=== PATIENT | male | born 1980 | race Two or more races ===

== ENCOUNTER 2024-06-25 18:10 | Inpatient (IN) | payer MEDICAID ==
[~2024-06-25] VITALS: Ht 170.2 cm; Wt 134.4 kg
[2024-06-25 18:39] VITALS: PULSE 121; RESP 24; O2SAT 95
[2024-06-25] MEDS: MAGNESIUM SULFATE 1GM/100ML 100 ML IV SCH (18:45)
[2024-06-25] MEDS: predniSONE 20 MG TAB PO ONE (18:45)
--- NOTE | 2024-06-25 18:56 | ECG ---
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
[2024-06-25] MEDS: IPRATROPIUM BROM 0.5 MG/2.5ML INH SOL HHN ONE (19:16)
[2024-06-25] MEDS: ALBUTEROL SULF 2.5 MG/0.5ML(0.5%) NEB SOLN HHN ONE (19:16)
[2024-06-25 19:20] VITALS: PULSE 120; RESP 22; O2SAT 95
--- NOTE | 2024-06-25 19:22 | ED.PDOC ---
SOB-HPI HPI Comments 44-year-old male came to ER via EMS for shortness of breath. Patient denies any medical problems. States for the past 3 days he has been having flu-like symptoms, including weakness, myalgia, cough, shortness of breath, chest discomfort, wheezing. Patient was saturating 89% on room air, in 93% at 4lpm. Patient was given albuterol Atrovent nebulization while EN route to the ER Chief Complaint: Shortness of Breath Time Seen by MD: 19:22 Primary Care Provider: TAZK Reviewed notes: Nurses Notes Information Source: Patient, Emergency Med Personnel Mode of Arrival: EMS Severity: Moderate Timing: Days Duration: Since onset Context: At Rest, With Light Exertion PE Risk Factors: None History of: None Prehospital treatment: Breathing Tx, Oxygen Modifying Factors: Nothing Associated Signs and Symptoms: Wheeze, Cough, Chest Pain Quality: Aching, Tightness Radiation: No Radiation Location: Chest (R), Chest (L) If cough with SOB: Productive Past Medical History PAST MEDICAL HISTORY: Denies Surgical History: Denies all surgeries Social History Smoker: Cigarettes Drugs: Marijuana Lives In: Home Constitutional: denies: chills, diaphoresis, fatigue, fever, malaise, sweats, weakness, others EENTM: denies: blurred vision, double vision, ear bleeding, ear discharge, ear drainage, ear pain, ear ringing, eye pain, eye redness, hearing loss, mouth pain, mouth swelling, nasal discharge, nose bleeding, nose congestion, nose pain, photophobia, tearing, throat pain, throat swelling, voice changes, others Respiratory: reports: cough, SOB at rest, shortness of breath, SOB with excertion, wheezing; denies: hemoptysis, orthopnea, stridor, others Cardiovascular: reports: chest pain; denies: dizzy spells, diaphoresis, Dyspnea on exertion, edema, irregular heart beat, left arm pain, lightheadedness, palpitations, PND, syncope, others Gastrointestinal: denies: abdomen distended, abdominal pain, blood streaked bowels, constipated, diarrhea, dysphagia, difficulty swallowing, hematemesis, melena, nausea, poor appetite, poor fluid intake, rectal bleeding, rectal pain, vomiting, others Genitourinary: denies: burning, dysuria, flank pain, frequency, hematuria, incontinence, penile discharge, penile sore, pain, testicle pain, testicle swelling, urgency, others Neurological: denies: dizziness, fainting, headache, left sided numbness, left sided weakness, numbness, paresthesia, pre-existing deficit, right sided numbness, right sided weakness, seizure, speech problems, tingling, tremors, weakness, others Musculoskeletal: denies: back pain, gout, joint pain, joint swelling, muscle pain, muscle stiffness, neck pain, others Integumetry: denies: bruises, change in color, change in hair/nails, dryness, laceration, lesions, lumps, rash, wounds, others Allergic/Immunocompromised: denies: Difficulty Healing, Frequent Infections, Hives, Itching, others Hematologic/Lymphatic: denies: anemia, blood clots, easy bleeding, easy bruising, swollen glands, others Endocrine: denies: excessive hunger, excessive sweating, excessive thirst, excessive urination, flushing, intolerance to cold, intolerance to heat, un explained weight gain, unexplained weight loss, others Psychiatric: denies: anxiety, bipolar disorder, depression, hopeless, panic disorder, schizophrenia, sleepless, suicidal, others Physical Exam General Appearance: Moderate Distress, Normal HEENT: Normal ENT Inspection, Pharynx Normal, TMs Normal Neck: Full Range of Motion, Non-Tender, Normal, Normal Inspection Respiratory: Chest Non-Tender, Crackles, Decreased Breath Sounds, No Accessory Muscle Use, Respiratory Distress, Wheezing Cardiovascular: No Edema, No JVD, No Murmur, No Gallop, Normal Peripheral Pulses, Regular Rate/Rhythm Breast Exam: Deferred Gastrointestinal: No Organomegaly, Non Tender, No Pulsatile Mass, Normal Bowel Sounds, Soft Genitalia: Deferred Pelvic: Deferred Rectal: Deferred Extremities: No calf tenderness, Normal capillary refill, Normal inspection, Normal range of motion, Non-tender, No pedal edema Musculoskeletal : Apperance: Normal Neurologic: Alert, handtools repairer II-XII nml as Tested, No Motor Deficits, Normal Affect, Normal Mood, No Sensory Deficits Cerebellar Function: Normal Reflexes: Normal Skin: Dry, Normal Color, Warm Lymphatic: No Adenopathy EKG EKG : Pulse Rate (adult): 134 Cardiac Rhythm: ST Was a procedure done? Was a procedure done?: No Differential Dx Differential Diagnosis: Asthma, Bronchitis, CHF, COPD, Myocardial infarction, Panic Attack, Pneumonia, Respiratory Distress, URI, Other (Influenza, COVID) X-Ray, Labs, Meds, VS Vital Signs Date Time Temp Pulse Resp B/P (MAP) Pulse Ox O2 Delivery O2 Flow Rate FiO2 06/25/24 22:00 99.1 106 22 128/59 (82) 94 99.1 06/25/24 20:18 110 20 96/51 06/25/24 20:00 117 06/25/24 19:48 120 22 125/65 06/25/24 19:23 134 06/25/24 19:20 99.3 120 22 125/65 (85) 95 99.3 06/25/24 19:20 120 22 95 Nasal Cannula* 3 32 06/25/24 19:16 20 97 Nasal Cannula* 3 32 06/25/24 19:16 97 Nasal Cannula* 3 32 06/25/24 18:53 99.8 126 30 128/72 (90) 93 06/25/24 18:39 121 24 95 Nasal Cannula* 4 36 06/25/24 18:38 98.1 121 24 157/82 (107) 95 98.1 06/25/24 18:17 134 Lab Test 06/25/24 22:06 06/25/24 20:55 06/25/24 20:12 06/25/24 19:24 Range/Units Lactic Acid Level 1.6 0.4-2.0 mmol/L Influenza Type A Antigen Positive Negative Influenza Type B Antigen Negative Negative Troponin I High Sensitivity 8 8 </=54 ng/L White Blood Count 16.2 H 4.4-10.8 10^3/uL Red Blood Count 4.64 4.5-5.90 10^6/uL Hemoglobin 14.8 13.5-17.5 g/dL Hematocrit 44.1 41.0-53.0 % Mean Corpuscular Volume 95.2 80.0-100.0 fL Mean Corpuscular Hemoglobin 32.0 28.0-32.0 pg Mean Corpuscular Hemoglobin Concent 33.6 32.0-36.0 g/dL Red Cell Distribution Width 13.1 11.8-14.3 % Platelet Count 202 140-450 10^3/uL Mean Platelet Volume 8.0 6.9-10.8 fL Neutrophils (%) (Auto) 89.1 H 37.0-80.0 % Lymphocytes (%) (Auto) 3.4 L 10.0-50.0 % Monocytes (%) (Auto) 7.4 0.0-12.0 % Eosinophils (%) (Auto) 0.0 0.0-7.0 % Basophils (%) (Auto) 0.1 0.0-2.0 % Neutrophils # (Auto) 14.5 H 1.6-8.6 10 ^3/uL Lymphocytes # (Auto) 0.6 0.4-5.4 10 ^3/uL Monocytes # (Auto) 1.2 0-1.3 10 ^3/uL Eosinophils # (Auto) 0 0-0.8 10 ^3/uL Basophils # (Auto) 0 0-0.2 10 ^3/uL Nucleated Red Blood Cells 0.0 % Sodium Level 129 L 136-145 mmol/L Potassium Level 3.3 L 3.5-5.1 mmol/L Chloride Level 99 98-107 mmol/L Carbon Dioxide Level 19 L 20-31 mmol/L Anion Gap 11 5-15 Blood Urea Nitrogen 16 9-23 mg/dL Creatinine 1.12 0.700-1.30 mg/dL Glomerular Filtration Rate Calc 83 >90 mL/min BUN/Creatinine Ratio 14.3 10.0-20.0 Serum Glucose 142 H 74-106 mg/dL Calcium Level 9.3 8.7-10.4 mg/dL Magnesium Level 1.7 1.6-2.6 mg/dL Total Bilirubin 0.8 0.2-1.0 mg/dL Aspartate Amino Transferase (AST) 36 13-40 U/L Alanine Aminotransferase (ALT) 36 7-40 U/L Alkaline Phosphatase 84 46-116 U/L B-Type Natriuretic Peptide 67.21 0-100 pg/mL Total Protein 7.0 5.7-8.2 g/dL Albumin 4.2 3.2-4.8 g/dL Current Medications Medications (Trade) Dose Ordered Sig/Vinny Route Start Time Stop Time Status Last Admin Albuterol (Ventolin Medneb) 5 mg ONCE ONCE [facility] 06/25/24 18:30 06/25/24 18:31 DC 06/25/24 19:16 Ipratropium [place] (Atrovent Medneb) 0.5 mg ONCE ONCE [facility] 06/25/24 18:30 06/25/24 18:31 DC 06/25/24 19:16 Prednisone 40 mg ONCE ONCE PO 06/25/24 18:30 06/25/24 18:31 DC 06/25/24 18:45 Magnesium Sulfate/ Dextrose 100 ml @ 100 mls/hr Q1H IV 06/25/24 18:30 06/25/24 20:29 DC 06/25/24 19:33 Ondansetron HCl (Zofran) 4 mg ONCE ONCE IV 06/25/24 19:45 06/25/24 19:46 DC 06/25/24 19:49 Morphine Sulfate 4 mg ONCE ONCE IV 06/25/24 19:45 06/25/24 19:46 DC 06/25/24 19:48 Ceftriaxone Sodium 50 ml @ 100 mls/hr ONCE ONCE IV 06/25/24 21:45 06/25/24 22:14 DC 06/25/24 22:01 Azithromycin 250 ml @ 125 mls/hr ONCE ONCE IV 06/25/24 21:45 06/25/24 23:44 DC 06/25/24 22:23 Time of 1ST Reevaluation: 19:19 Reevaluation 1ST: Unchanged Patient Education/Counseling: Diagnosis, Treatment Family Education/Counseling: No Family Present Departure 1 Departure Time of Disposition: 21:30 Impression: Primary Impression: Respiratory failure with hypoxia Additional Impressions: Bronchospasm, acute URI, acute Disposition: 09 ADMITTED INPATIENT Admit to: Med Surg Condition: Guarded e-Prescriptions Oseltamivir Phosphate (Tamiflu) 75 Mg Cap 1 CAP PO BID for 5 Days, #10 CAP Prov: COLT GARCIA MD 06/25/24 Azithromycin (Azithromycin) 500 Mg Tab 1 TAB PO DAILY for 7 Days, #7 TAB Prov: COLT GARCIA MD 06/25/24 Prednisone (Prednisone) 20 Mg Tab 20 MG PO BID for 5 Days, #10 TAB Prov: COLT GARCIA MD 06/25/24 Albuterol Sulfate (Albuterol Sulfate Hfa) 108 Mcg/Act Aer 108 MCG IN Q6HP PRN for 10 Days, #1 AER Prov: COLT GARCIA MD 06/25/24 Critical Care Note Critical Care Time?: Yes (35 min-critical care time only) Critical care comment: Shortness of breath, hypoxia Stability Stability form required: No Heart Score Heart Score: Heart Score Response (Comments) Value History Slightly Suspicious 0 EKG Normal 0 Age <45 0 Risk Factors No known risk factors 0 Troponin Normal limit 0 Total 0 I personally scribed for COLT GARCIA MD ([email or web address]) on 06/25/24 at 19:22. Electronically submitted by Saleem Cm ([facility] I personally scribed for COLT GARCIA MD ([email or web address]) on 06/25/24 at 19:23. Electronically submitted by Saleem Cm ([email or web address]). I personally scribed for COLT GARCIA MD ([email or web address]) on 06/25/24 at 20:20. Electronically submitted by Samara Cabrera ([email or web address]). COLT GARCIA MD Jun 25, 2024 19:22
--- NOTE | 2024-06-25 19:23 | DVH ---
CHEST RADIOGRAPH Indication: SOB Technique: Single frontal view of the chest was obtained Comparison: None FINDINGS: Lines and Tubes: None Lungs: Clear Pleura: No effusion. No pneumothorax. Cardiomediastinal contours: Unremarkable Bones: Unremarkable IMPRESSION: Clear lungs.
[2024-06-25 19:48] LABS: Basophils # (auto) 0 10 ^3/uL (0-0.2); Basophils % (auto) 0.1 % (0.0-2.0); Eosinophils # (auto) 0 10 ^3/uL (0-0.8); Hematocrit 44.1 % (41.0-53.0); Hemoglobin 14.8 g/dL (13.5-17.5); Lymphocytes # (auto) 0.6 10 ^3/uL (0.4-5.4); Lymphocytes % (auto) 3.4 % (10.0-50.0); Mean Corpuscular Hgb Conc. 33.6 g/dL (32.0-36.0); Mean Corpuscular Volume 95.2 fL (80.0-100.0); Monocytes # (auto) 1.2 10 ^3/uL (0-1.3); Monocytes % (auto) 7.4 % (0.0-12.0); Neutrophils # (auto) 14.5 10 ^3/uL (1.6-8.6); Neutrophils % (auto) 89.1 % (37.0-80.0); Platelet Count (auto) 202 10^3/uL (140-450); Red Blood Cells 4.64 10^6/uL (4.5-5.90); Red Cell Distribution Width 13.1 % (11.8-14.3); White Blood Cell 16.2 10^3/uL (4.4-10.8)
[2024-06-25] MEDS: MORPHINE SULFATE 4 MG/ML SYR/VIAL IV ONE (19:48)
[2024-06-25] MEDS: ONDANSETRON HCL 4 MG/2 ML VIAL IV ONE (19:49)
[2024-06-25 20:19] LABS: Alanine Aminotransferase 36 U/L (7-40); Albumin 4.2 g/dL (3.2-4.8); Alkaline Phosphatase 84 U/L (46-116); Anion Gap 11 (5-15); Aspartate Aminotransferase 36 U/L (13-40); BUN/Creatinine Ratio 14.3 (10.0-20.0); Blood Urea Nitrogen 16 mg/dL (9-23); Calcium 9.3 mg/dL (8.7-10.4); Chloride 99 mmol/L (98-107); Magnesium 1.7 mg/dL (1.6-2.6)
[2024-06-25 20:20] LABS: Bilirubin, Total 0.8 mg/dL (0.2-1.0)
[2024-06-25 20:21] LABS: Carbon Dioxide 19 mmol/L (20-31); Glucose 142 mg/dL (74-106); Potassium 3.3 mmol/L (3.5-5.1); Sodium 129 mmol/L (136-145)
[2024-06-25] MEDS ORDERED: ALBU108A5 IN (21:15)
[2024-06-25] MEDS ORDERED: AZIT500T66 PO (21:15)
[2024-06-25] MEDS ORDERED: OSEL75CA5 PO (21:15)
[2024-06-25] MEDS ORDERED: PRED20TA2 PO (21:15)
[2024-06-25] MEDS: cefTRIAXone 1GM/50ML D5W 50 ML IV ONE (22:01)
[2024-06-25 22:13] LABS: Rapid Influenza A Positive (Negative); Rapid Influenza B Negative (Negative)
[2024-06-25] MEDS: AZITHROMYCIN 500MG/ 250ML 250 ML IV ONE (22:23)
--- NOTE | 2024-06-25 23:08 | DVHHPRES ---
History of Present Illness Resident Creating Document: NAVIN RAMAN RESIDENT History of Present Illness The patient is a 44-year-old male with no known medical history who presented to the hospital with worsening shortness of breath, cough, fever, and chills that began two days ago. He suspects he contracted an infection from family members who had similar but less severe symptoms. His shortness of breath has progressively worsened and is accompanied by cough and sputum production. He denies any other symptoms such as chest pain, headache, motor weakness, sensory deficits, or abdominal pain. Upon further evaluation, he was found to be tachycardic, with an elevated white blood cell count and hypoxia. He was initiated on IV antibiotics, IV fluids, and breathing treatments. He denies any other symptoms. Patient will be admitted to hospital for pneumonia and acute hypoxic respiratory failure . Past Medical History None Past Surgical History: None Family History: None Smoke: No ALCOHOL: none Lives: with Family Review of Systems Constitutional: No: Fever, Chills, Sweats, Weakness, Malaise, Other Eyes: No: Pain, Vision change, Conjunctivae inflammation, Eyelid inflammation, Other, Redness ENT: No: Ear pain, Ear discharge, Nose pain, Nose discharge, Nose congestion, Mouth pain, Mouth swelling, Throat pain, Throat swelling, Other Respiratory: Cough, Shortness of breath, SOB with excertion, Sputum Cardiovascular: No: Chest Pain, Palpitations, Orthopnea, Paroxysmal Noc. Dyspnea, Edema, Lt Headedness, Other Gastrointestinal: No: Nausea, Vomiting, Abdominal Pain, Diarrhea, Constipation, Melena, Hematochezia, Other Genitourinary: No Dysuria, No Frequency, No Incontinence, No Hematuria, No Retention, No Other Musculoskeletal: No: other, neck pain, shoulder pain, arm pain, back pain, hand pain, leg pain, foot pain Skin: No: Rash, Lesions, Jaundice, Bruising, Other Neurological: No: Weakness, Numbness, Incoordination, Change in speech, Confusion, Seizures, Other Allergies: Coded Allergies: NO KNOWN ALLERGIES (Unverified , 11/24/11) Medications Current Medications Medications Dose Ordered Sig/Vinny Route Start Time Stop Time Status Last Admin Dose Admin Nitroglycerin 0.4 mg Q5MINP PRN SL 06/25/24 23:15 Morphine Sulfate 2 mg Q30M PRN IV 06/25/24 23:15 Sodium Chloride 1,000 ml @ 125 mls/hr Q8H IV 06/25/24 23:15 UNV Ceftriaxone Sodium 50 ml @ 100 mls/hr DAILY@09 IV 06/26/24 09:00 UNV Azithromycin 500 mg DAILY PO 06/26/24 10:00 UNV Albuterol 2.5 mg Q6HR NEB 06/26/24 00:00 UNV Ipratropium [place] 0.5 mg Q6HR NEB 06/26/24 00:00 UNV Exam Vital Signs Vital Signs Date Time Temp Pulse Resp B/P (MAP) Pulse Ox O2 Delivery O2 Flow Rate FiO2 06/25/24 22:00 99.1 106 22 128/59 (82) 94 99.1 06/25/24 19:20 Nasal Cannula* 3 32 General Appearance: Alert, Oriented X3 HEENT: PERRLA Respiratory: Clear to auscultation, Other (Mild crackles over bilateral lung base.) Cardiovascular: Regular rate, Normal S1, Normal S2 Abdominal: Normal bowel sounds, Soft, No tenderness Extremities: No clubbing, No cyanosis, No edema Skin: No rashes, No breakdown, No significant lesion Neuro: Normal gait, Normal speech, Strength at 5/5 X4 ext Psych/Mental Status: Mental status NL, Mood NL Labs/Xrays Labs Test 06/25/24 22:06 06/25/24 20:55 06/25/24 20:12 06/25/24 19:24 Range/Units Lactic Acid Level 1.6 0.4-2.0 mmol/L Influenza Type A Antigen Positive Negative Influenza Type B Antigen Negative Negative Troponin I High Sensitivity 8 </=54 ng/L White Blood Count 16.2 H 4.4-10.8 10^3/uL Red Blood Count 4.64 4.5-5.90 10^6/uL Hemoglobin 14.8 13.5-17.5 g/dL Hematocrit 44.1 41.0-53.0 % Mean Corpuscular Volume 95.2 80.0-100.0 fL Mean Corpuscular Hemoglobin 32.0 28.0-32.0 pg Mean Corpuscular Hemoglobin Concent 33.6 32.0-36.0 g/dL Red Cell Distribution Width 13.1 11.8-14.3 % Platelet Count 202 140-450 10^3/uL Mean Platelet Volume 8.0 6.9-10.8 fL Neutrophils (%) (Auto) 89.1 H 37.0-80.0 % Lymphocytes (%) (Auto) 3.4 L 10.0-50.0 % Monocytes (%) (Auto) 7.4 0.0-12.0 % Eosinophils (%) (Auto) 0.0 0.0-7.0 % Basophils (%) (Auto) 0.1 0.0-2.0 % Neutrophils # (Auto) 14.5 H 1.6-8.6 10 ^3/uL Lymphocytes # (Auto) 0.6 0.4-5.4 10 ^3/uL Monocytes # (Auto) 1.2 0-1.3 10 ^3/uL Eosinophils # (Auto) 0 0-0.8 10 ^3/uL Basophils # (Auto) 0 0-0.2 10 ^3/uL Nucleated Red Blood Cells 0.0 % Sodium Level 129 L 136-145 mmol/L Potassium Level 3.3 L 3.5-5.1 mmol/L Chloride Level 99 98-107 mmol/L Carbon Dioxide Level 19 L 20-31 mmol/L Anion Gap 11 5-15 Blood Urea Nitrogen 16 9-23 mg/dL Creatinine 1.12 0.700-1.30 mg/dL Glomerular Filtration Rate Calc 83 >90 mL/min BUN/Creatinine Ratio 14.3 10.0-20.0 Serum Glucose 142 H 74-106 mg/dL Calcium Level 9.3 8.7-10.4 mg/dL Magnesium Level 1.7 1.6-2.6 mg/dL Total Bilirubin 0.8 0.2-1.0 mg/dL Aspartate Amino Transferase (AST) 36 13-40 U/L Alanine Aminotransferase (ALT) 36 7-40 U/L Alkaline Phosphatase 84 46-116 U/L B-Type Natriuretic Peptide 67.21 0-100 pg/mL Total Protein 7.0 5.7-8.2 g/dL Albumin 4.2 3.2-4.8 g/dL Assessment/Plan Assessment/Plan Pneumonia likely secondary to influenza Sepsis likely due to above Acute hypoxic respiratory failure Hyponatremia Hypokalemia Obesity Plan/recommendation -IV antibiotic with ceftriaxone and azithromycin. Given positive for influenza A continue oseltamivir 75 mg p.o. b.i.d.. -IV fluid with normal saline 125 mL/hour. -pending sputum culture and blood culture. -breathing treatment with albuterol and ipratropium bromide scheduled q.6. -oxygen supply via nasal cannula, currently on 3-4 L. -follow with sodium level given mildly low-level 129. Goals of care discussed greater than 22 minutes Plan discussed with Dr. Nobles Plan discussed with: Patient, Other (RN) My Orders Orders - NAVIN RAMAN RESIDENT Procedure Category Date Status Time Admit ADMIT 06/25/24 Transmitted 23:02 Nitroglycerin PHA 06/25/24 In Process Sublingual (Ntrostat 23:15 Morphine Sulfate PHA 06/25/24 In Process Injection 23:15 Oxygen By Nasal RT 06/25/24 Transmitted Cannula 23:02 Stat Ekg For Chest NNEKA 06/25/24 In Process Pain 23:02 Notify Md Of Changes NNEKA 06/25/24 In Process From Base 23:02 Slag Skimmer For [facility] 06/25/24 In Process 24 Hours 23:02 Emergency Dysrhythmia [facility] 06/25/24 In Process Protocol 23:02 Rhythm Strips Once NNEKA 06/25/24 In Process Every Shift 23:02 Sodium Chloride 0.9% PHA 06/25/24 In Process 23:15 Respiratory Culture KURTIS 06/25/24 Logged W/ Gs 23:04 Sodium Chloride 0.9% PHA 06/25/24 Logged 23:15 Ceftriaxone 1gm/50ml PHA 06/26/24 Logged D5w (Rocephin) 09:00 Azithromycin Tablet PHA 06/26/24 Logged (Zithromax Tablet) 10:00 Albuterol Medneb PHA 06/26/24 Logged (Ventolin Medneb) 00:00 Ipratropium Medneb PHA 06/26/24 Logged (Atrovent Medneb) 00:00 Urinalysis LAB 06/25/24 Transmitted 23:06 Drug Screen LAB 06/25/24 Transmitted 23:06 Potassium Er Tablet PHA 06/25/24 Verified (Klor-Con Tablet) 23:15 Date of Service: Jun 25, 2024 Billing Provider: INES NOBLES MD Common Visit Codes: [id number] INP/OBS CARE (HIGH) NAVIN RAMAN RESIDENT Jun 25, 2024 23:08 INES NOBLES MD Jun 29, 2024 19:51
[2024-06-25] MEDS ORDERED: NITROGLYCERIN 0.4 MG SL TAB SL PRN (23:15)
[2024-06-25] MEDS: POTASSIUM CHL 20 Meq TABLET PO ONE (23:35)
[2024-06-25] MEDS: SODIUM CHLORIDE 0.9% 1,000 ML IV ONE (23:36)
[2024-06-25] MEDS: SODIUM CHLORIDE 0.9% 1,000 ML IV SCH (23:44)
[2024-06-26] VITALS (15 sets, daily range): BP systolic 128–159; BP diastolic 59–99; PULSE 57–106; RESP 12–24; TEMP 97.9–99.1; O2SAT 94–100
[2024-06-26] MEDS: IPRATROPIUM BROM 0.5 MG/2.5ML INH SOL NEB SCH (00:06)
[2024-06-26] MEDS: ALBUTEROL SULF 2.5 MG/0.5ML(0.5%) NEB SOLN NEB SCH (00:06)
[2024-06-26] MEDS: OSELTAMIVIR 75 MG CAP PO ONE (01:34)
[2024-06-26 04:52] LABS: Urine Bacteria None Seen /hpf (None Seen)
[2024-06-26 05:01] LABS: Urine Blood 1+ /uL (Negative); Urine Clarity Clear (Clear); Urine Color Light-Yellow (Yellow); Urine Protein, UAD Negative (Negative); Urine Specific Gravity 1.011 (1.001-1.035); Urine Squamous Epithelial Cell None Seen /hpf (<5); Urine Urobilinogen Normal (Negative); Urine WBC <1 /hpf (0 - 3)
[2024-06-26 05:07] LABS: Opiate Scree,Urine Neg (NEGATIVE)
[2024-06-26 05:12] LABS: Amphetamine Screen, Urine Neg (NEGATIVE); Barbiturate Scree,Urine Neg (NEGATIVE); Benzodiazephine Screen, Urine Neg (NEGATIVE); Cannabinoid Screen, Urine Pos (NEGATIVE); Cocaine Screen, Urine Neg (NEGATIVE); Phencyclidine Screen, Urine Neg (NEGATIVE)
[2024-06-26 06:26] LABS: Basophils # (auto) 0 10 ^3/uL (0-0.2); Basophils % (auto) 0.2 % (0.0-2.0); Eosinophils # (auto) 0 10 ^3/uL (0-0.8); Hematocrit 44.1 % (41.0-53.0); Lymphocytes # (auto) 0.7 10 ^3/uL (0.4-5.4); Lymphocytes % (auto) 5.4 % (10.0-50.0); Mean Corpuscular Hemoglobin 31.6 pg (28.0-32.0); Mean Corpuscular Hgb Conc. 33.9 g/dL (32.0-36.0); Mean Corpuscular Volume 93.3 fL (80.0-100.0); Monocytes # (auto) 0.6 10 ^3/uL (0-1.3); Monocytes % (auto) 4.5 % (0.0-12.0); Neutrophils # (auto) 11.7 10 ^3/uL (1.6-8.6); Neutrophils % (auto) 89.9 % (37.0-80.0); Platelet Count (auto) 208 10^3/uL (140-450); Red Blood Cells 4.72 10^6/uL (4.5-5.90); Red Cell Distribution Width 13.3 % (11.8-14.3); White Blood Cell 13.1 10^3/uL (4.4-10.8)
[2024-06-26 06:57] LABS: Anion Gap 7 (5-15); Calcium 9.4 mg/dL (8.7-10.4); Carbon Dioxide 25 mmol/L (20-31); Chloride 105 mmol/L (98-107); Potassium 4.7 mmol/L (3.5-5.1); Sodium 137 mmol/L (136-145)
[2024-06-26 07:03] LABS: BUN/Creatinine Ratio 14.4 (10.0-20.0); Blood Urea Nitrogen 14 mg/dL (9-23)
[2024-06-26 07:17] LABS: Glucose 136 mg/dL (74-106)
[2024-06-26] MEDS: OSELTAMIVIR 75 MG CAP PO SCH (10:15)
[2024-06-26 11:44] LABS: Free T3 2.01 pg/mL (2.3-4.2)
[2024-06-26 11:45] LABS: Free T4 (Free Thyroxine) 0.86 ng/dL (0.89-1.76); Triglycerides 33 mg/dL (< 150)
[2024-06-26 11:46] LABS: LDL Cholesterol 66 mg/dL (< 100)
[2024-06-26 11:47] LABS: Cholesterol 112 mg/dL (< 200); HDL Cholesterol 41 mg/dL (40-59)
[2024-06-26] MEDS: IBUPROFEN 400 MG TAB PO PRN (13:51)
[2024-06-26] MEDS: DOXYCYCLINE 100 MG TAB/CAP PO ONE (17:47)
--- NOTE | 2024-06-26 19:23 | DVHPNRES ---
Progress Note Date Seen: Jun 26, 2024 Resident Creating Document: MISTY ASENCIO RESIDENT Medical Necessity Reason Pt with a Central, PICC or Fol: No Subjective Review of Systems The patient is a 44-year-old male with no known medical history who presented to the hospital with worsening shortness of breath, cough, fever, and chills that began two days ago. He suspects he contracted an infection from family members who had similar but less severe symptoms. His shortness of breath has progressively worsened and is accompanied by cough and sputum production. He denies any other symptoms such as chest pain, headache, motor weakness, sensory deficits, or abdominal pain. Upon further evaluation, he was found to be tachycardic, with an elevated white blood cell count and hypoxia. He was initiated on IV antibiotics, IV fluids, and breathing treatments. He denies any other symptoms. Patient will be admitted to hospital for pneumonia and acute hypoxic respiratory failure . 44-year-old male patient with past medical history of prediabetes, drug abuse, marijuana use, hypertension and type 2 obesity, patient came to the emergency department with a chief complaint of shortness of breaths cough fever that progressively got worse since 2 days ago. Patient was positive for influenza type a infection, for which she was started on oseltamivir b.i.d. p.o., he was also started on empiric IV antibiotics for possible superimposed community- acquired pneumonia. Patient was also started on med neb treatment and steroids, recent TSH and thyroid levels were found to be low. For which prolactin levels and anti TPO. Patient reports: Feels better Changes from previous H/P or p: Changes Objective vital signs Vital Sign Date Time Temp Pulse Resp B/P (MAP) Pulse Ox O2 Delivery O2 Flow Rate FiO2 06/26/24 17:26 75 14 94 06/26/24 15:15 97.8 118/76 (90) 97.8 06/26/24 11:36 Nasal Cannula 3.0 06/26/24 11:36 32 Total Intake and Output 06/25/24 06/25/24 06/26/24 15:00 23:00 07:00 Intake Total 250 ml 2125 ml Output Total 410 ml Balance -160 ml 2125 ml medications Current Medications Medications Dose Ordered Sig/Vinny Route Start Time Stop Time Status Last Admin Dose Admin Nitroglycerin 0.4 mg Q5MINP PRN SL 06/25/24 23:15 Morphine Sulfate 2 mg Q30M PRN IV 06/25/24 23:15 Sodium Chloride 1,000 ml @ 125 mls/hr Q8H IV 06/25/24 23:15 06/26/24 15:19 125 MLS/HR Ceftriaxone Sodium 50 ml @ 100 mls/hr DAILY@09 IV 06/27/24 09:00 Ibuprofen 400 mg Q8HP PRN PO 06/25/24 23:15 06/26/24 13:51 400 MG Oseltamivir Phosphate 75 mg Q12HR PO 06/26/24 10:00 07/01/24 09:59 06/26/24 10:15 75 MG Ipratropium [place] 0.5 mg Q4HPRN PRN NEB 06/26/24 12:15 Albuterol 2.5 mg Q4HPRN PRN NEB 06/26/24 12:15 Doxycycline Monohydrate 100 mg Q12HR PO 06/27/24 10:00 Examination: GENERAL:Normal, HEENT:Normal, NECK:Normal, LUNGS:Normal, CVS:Normal, ABDOMEN:Normal, MSK:Normal, SKIN:Normal, NEURO:Normal, :Normal laboratory and microbiology Laboratory Tests 06/26/24 06:00 Test 06/26/24 06:00 Range/Units Serum Glucose 136 H 74-106 mg/dL Problem List/Assessment/Plan Problem List/Assessment/Plan # acute hypoxemic respiratory failure likely due to community-acquired pneumonia # septicemia likely due to Gram-positive/ Gram-negative Pneumonia, positive for influenza type a -IV antibiotics -normal saline 0.9% IV -med neb -oseltamivir 75 mg p.o. b.i.d. -oxygen supplementation through nasal cannula # Hypothyroidism Continue home medications, levothyroxine # Hyponatremia -treat underlying condition # Hypokalemia -replenished # Obesity -patient was counseled regarding lifestyle modification and dietary habits. Case discussed with Dr. Romero Goals of care discussed with the patient for 22 minutes Code status: Full code Plan discussed with: Patient My Orders My Orders Orders - MISTY ASENCIO RESIDENT Procedure Category Date Status Time Consistent DIET 06/26/24 Transmitted Carb(Ccho)Diabetes Breakfast Ipratropium Medneb PHA 06/26/24 In Process (Atrovent Medneb) 12:15 Albuterol Medneb PHA 06/26/24 In Process (Ventolin Medneb) 12:15 Doxycycline Tablet PHA 06/27/24 In Process (Vibramycin Tablet) 10:00 MISTY ASENCIO RESIDENT Jun 26, 2024 19:23
[2024-06-26] MEDS: IPRATROPIUM BROM 0.5 MG/2.5ML INH SOL NEB PRN (19:44)
[2024-06-26] MEDS: ALBUTEROL SULF 2.5 MG/0.5ML(0.5%) NEB SOLN NEB PRN (19:45)
[2024-06-27] VITALS (9 sets, daily range): BP systolic 116–140; BP diastolic 66–92; PULSE 74–92; RESP 16–22; TEMP 97.4–98.2; O2SAT 92–97
[2024-06-27] MEDS: MORPHINE SULFATE INJ 2 MG/ml SYRG IV PRN (02:57)
[2024-06-27] MEDS: ONDANSETRON HCL 4 MG/2 ML VIAL IV PRN (05:26)
[2024-06-27 08:05] LABS: Basophils # (auto) 0.1 10 ^3/uL (0-0.2); Basophils % (auto) 0.9 % (0.0-2.0); Eosinophils # (auto) 0 10 ^3/uL (0-0.8); Eosinophils % (auto) 0.1 % (0.0-7.0); Hematocrit 43.9 % (41.0-53.0); Hemoglobin 15.1 g/dL (13.5-17.5); Lymphocytes # (auto) 1.1 10 ^3/uL (0.4-5.4); Lymphocytes % (auto) 10.6 % (10.0-50.0); Mean Corpuscular Hemoglobin 32.2 pg (28.0-32.0); Mean Corpuscular Hgb Conc. 34.4 g/dL (32.0-36.0); Mean Corpuscular Volume 93.4 fL (80.0-100.0); Monocytes # (auto) 0.9 10 ^3/uL (0-1.3); Monocytes % (auto) 9.6 % (0.0-12.0); Neutrophils # (auto) 7.8 10 ^3/uL (1.6-8.6); Neutrophils % (auto) 78.8 % (37.0-80.0); Platelet Count (auto) 210 10^3/uL (140-450); White Blood Cell 9.9 10^3/uL (4.4-10.8)
[2024-06-27 08:09] LABS: Chloride 103 mmol/L (98-107); Potassium 4.3 mmol/L (3.5-5.1); Sodium 137 mmol/L (136-145)
[2024-06-27 08:10] LABS: Anion Gap 8 (5-15); Calcium 9.3 mg/dL (8.7-10.4); Carbon Dioxide 26 mmol/L (20-31)
[2024-06-27 08:16] LABS: BUN/Creatinine Ratio 20.2 (10.0-20.0); Blood Urea Nitrogen 17 mg/dL (9-23); Glucose 107 mg/dL (74-106)
[2024-06-27] MEDS: cefTRIAXone 1GM/50ML D5W 50 ML IV SCH (08:58)
[2024-06-27] MEDS: DOXYCYCLINE 100 MG TAB/CAP PO SCH (09:12)
--- NOTE | 2024-06-27 09:46 | ECG ---
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
[2024-06-27] MEDS ORDERED: AZITHROMYCIN 250 MG TAB PO SCH (10:00)
[2024-06-27] MEDS ORDERED: LEVO25TA6 PO (15:54)
[2024-06-27] MEDS ORDERED: AMOX500T86 PO (15:54)
--- NOTE | 2024-06-27 15:57 | DVHDSRES ---
Discharge Summary Date of Admission Resident Creating Document: LIA RICO RESIDENT Jun 25, 2024 at 23:02 Date of Discharge: Jun 27, 2024 Admitting Diagnosis Shortness of bed due to pneumonia Labs/Diagnostic Data: Laboratory Results Test 06/27/24 07:18 06/26/24 06:00 06/26/24 04:30 06/25/24 22:06 White Blood Count 9.9 10^3/uL (4.4-10.8) Red Blood Count 4.70 10^6/uL (4.5-5.90) Hemoglobin 15.1 g/dL (13.5-17.5) Hematocrit 43.9 % (41.0-53.0) Mean Corpuscular Volume 93.4 fL (80.0-100.0) Mean Corpuscular Hemoglobin 32.2 pg (28.0-32.0) Mean Corpuscular Hemoglobin Concent 34.4 g/dL (32.0-36.0) Red Cell Distribution Width 13.0 % (11.8-14.3) Platelet Count 210 10^3/uL (140-450) Mean Platelet Volume 8.6 fL (6.9-10.8) Neutrophils (%) (Auto) 78.8 % (37.0-80.0) Lymphocytes (%) (Auto) 10.6 % (10.0-50.0) Monocytes (%) (Auto) 9.6 % (0.0-12.0) Eosinophils (%) (Auto) 0.1 % (0.0-7.0) Basophils (%) (Auto) 0.9 % (0.0-2.0) Neutrophils # (Auto) 7.8 10 ^3/uL (1.6-8.6) Lymphocytes # (Auto) 1.1 10 ^3/uL (0.4-5.4) Monocytes # (Auto) 0.9 10 ^3/uL (0-1.3) Eosinophils # (Auto) 0 10 ^3/uL (0-0.8) Basophils # (Auto) 0.1 10 ^3/uL (0-0.2) Nucleated Red Blood Cells 0.0 % Sodium Level 137 mmol/L (136-145) Potassium Level 4.3 mmol/L (3.5-5.1) Chloride Level 103 mmol/L (98-107) Carbon Dioxide Level 26 mmol/L (20-31) Anion Gap 8 (5-15) Blood Urea Nitrogen 17 mg/dL (9-23) Creatinine 0.84 mg/dL (0.700-1.30) Glomerular Filtration Rate Calc 110 mL/min (>90) BUN/Creatinine Ratio 20.2 (10.0-20.0) Serum Glucose 107 mg/dL (74-106) Calcium Level 9.3 mg/dL (8.7-10.4) Hemoglobin A1c 5.9 % A1C (<5.7) Triglycerides Level 33 mg/dL (< 150) Cholesterol Level 112 mg/dL (< 200) LDL Cholesterol 66 mg/dL (< 100) HDL Cholesterol 41 mg/dL (40-59) Thyroid Stimulating Hormone (TSH) 0.20 uIU/mL (0.55-4.78) Free Thyroxine (T4) Calculated 0.86 ng/dL (0.89-1.76) Free Triiodothyronine (T3) pg/mL 2.01 pg/mL (2.3-4.2) Prolactin 3.04 ng/mL (2.1-17.7) Urine Color Light-yellow (Yellow) Urine Clarity Clear (Clear) Urine pH 6.0 (5.0-9.0) Urine Specific Hodges 1.011 (1.001-1.035) Urine Protein Negative (Negative) Urine Ketones Negative (Negative) Urine Blood 1+ /uL (Negative) Urine Nitrite Negative (Negative) Urine Bilirubin Negative (Negative) Urine Urobilinogen Normal mg/dL (Negative) Urine Leukocyte Esterase Negative /uL (Negative) Urine RBC 3 /hpf (0 - 3) Urine WBC <1 /hpf (0 - 3) Urine Squamous Epithelial Cells None seen /hpf (<5) Urine Bacteria None seen /hpf (None Seen) Urine Glucose Normal mg/dL (Normal) Urine Opiates Screen Neg (NEGATIVE) Urine Fentanyl Screen Neg (NEGATIVE) Urine Barbiturates Screen Neg (NEGATIVE) Urine Phencyclidine Screen Neg (NEGATIVE) Urine Amphetamines Screen Neg (NEGATIVE) Urine Benzodiazepines Screen Neg (NEGATIVE) Urine Cocaine Screen Neg (NEGATIVE) Urine Cannabinoids Screen Pos (NEGATIVE) Lactic Acid Level 1.6 mmol/L (0.4-2.0) Test 06/25/24 20:55 06/25/24 20:12 06/25/24 19:24 Influenza Type A Antigen Positive (Negative) Influenza Type B Antigen Negative (Negative) Troponin I High Sensitivity 8 ng/L (</=54) Magnesium Level 1.7 mg/dL (1.6-2.6) Total Bilirubin 0.8 mg/dL (0.2-1.0) Aspartate Amino Transferase (AST) 36 U/L (13-40) Alanine Aminotransferase (ALT) 36 U/L (7-40) Alkaline Phosphatase 84 U/L (46-116) B-Type Natriuretic Peptide 67.21 pg/mL (0-100) Total Protein 7.0 g/dL (5.7-8.2) Albumin 4.2 g/dL (3.2-4.8) Other Laboratory Tests 06/27/24 07:18 Brief Hx & Hospital Course: 44-year-old male patient with past medical history of prediabetes, drug abuse, marijuana use, hypertension and type 2 obesity, patient came to the emergency department with a chief complaint of shortness of breaths cough fever that progressively got worse since 2 days ago. Patient was positive for influenza type a infection, for which she was started on oseltamivir b.i.d. p.o., he was also started on empiric IV antibiotics for possible superimposed community- acquired pneumonia. Patient was also started on med neb treatment and steroids, recent TSH and thyroid levels were found to be low and free T3-T4 was also low, we are starting levothyroxine. Was treated with IV antibiotic with ceftriaxone and azithromycin pneumonia. Given positive for influenza started on oseltamivir 75 mg p.o. b.i.d. patient was on 4 L of oxygen due to his shortness of breaths, two the patient is feeling better, off oxygen and saturating more than 95%, patient is walking and hemodynamically stable, two the patient is going to be discharged home with Tamiflu and Augmentin, advised patient to follow up with outpatient pulmonology for sleep study. Also advised patient to be follow up with his primary care in 1-2 weeks. Condition at Discharge: Stable Final Diagnosis/Problems List # Pneumonia likely secondary to influenza # Sepsis likely due to above # Acute hypoxic respiratory failure # Hypothyroidism # Hyponatremia # Hypokalemia # Obesity Discharge Disposition: Home SNF Discharge Will this Physician continue t: No Discharge Instruct/Medications Diet: Cardiac 2g Na,low cholest Activity: No Restrictions, As Tolerated Follow Up/Referral: Follow up with pulmonology for sleep study Follow up with PCP in 1-2 weeks Medications: Levothyroxine 25 mg daily Augmentin 500 mg b.i.d. for five days Resume home Tamiflu for 3 days Resume home medications Discharge Statement: "Patient was advised to return to the ER or call 911 if any headaches, dizziness, shortness of breath, chest pain, abdominal pain, bleeding, fevers, or worsening of medical condition. Patient was counseled about treatment plan, medications, possible side effects, patientverbalized understanding. All questions were answered to the best of my ability. This discharge took greater then 30 minutes in planning, reviewing documentation, counseling the patient, and discussing with other team members." ASSESSMENT ASSESSMENT Assessment # Pneumonia likely secondary to influenza # Sepsis likely due to above # Acute hypoxic respiratory failure # Hypothyroidism # Hyponatremia # Hypokalemia # Obesity Date of Service: Jun 27, 2024 Billing Provider: SIDDHARTH BEJARANO MD Common Visit Codes: 97450-BTQ/OBS DISCH DAY >30min LIA RICO RESIDENT Jun 27, 2024 15:57 SIDDHARTH BEJARANO MD Jun 30, 2024 21:00
== END 2024-06-27 19:00 | disposition home or self-care (01) | DRG 720 ==
LOC: EDBD 18:10 → ER 18:10 → TELE 23:02 → TELE-EAST 06-26 19:15
PROVIDERS: ADMIT Student in an Organized Health Care Education/Training Program; ATTEND Student in an Organized Health Care Education/Training Program
DX: A41.89 Other specified sepsis (principal); J96.01 Acute respiratory failure with hypoxia; J10.00 Influenza due to other identified influenza virus with unspecified type of pneumonia; J18.9 Pneumonia, unspecified organism; E87.1 Hypo-osmolality and hyponatremia; F17.210 Nicotine dependence, cigarettes, uncomplicated; J06.9 Acute upper respiratory infection, unspecified; E03.9 Hypothyroidism, unspecified; J98.01 Acute bronchospasm; E87.6 Hypokalemia; E66.9 Obesity, unspecified; Z79.899 Other long term (current) drug therapy; Z68.41 Body mass index [BMI] 40.0-44.9, adult
CPT/HCPCS: 36415; 71045; 80048; 80053; 80061; 80307; 81001; 83036; 83605; 83735; 83880; 84146; 84439; 84443; 84481; 84484; 85025; 86376; 87040; 87804; 93005; 94640; 99291; G0378; J2405